=== PATIENT | male | born 1975 | race Caucasian/White ===

== ENCOUNTER 2024-11-11 15:01 | Emergency (ER) | payer OTHER ==
[2024-11-11 16:41] LABS: #Basophils Less than 0.03 10x3/uL (0.0-0.2); %Basophils 0.2 % (0.0-1.0); %Eosinophils 0.4 % (0.0-10.0); %Lymphocytes 5.8 % (21.0-51.0); %Monocytes 8.1 % (0.0-10.0); %Neutrophils 85.2 % (42.0-75.0); Hematocrit 43.8 % (42.0-52.0); Hemoglobin 13.7 g/dL (14.0-18.0); Mean Corpuscular HGB CONC 31.3 g/dL (32.0-36.0); Mean Corpuscular Hemoglobin 27.3 pg (27.0-31.0); Mean Corpuscular Volume 87.3 fL (78.0-98.0); Mean Platelet Volume 9.2 fL (7.4-10.4); Platelet Count 166 10x3/uL (130-400); RBC Distribution Width 14.7 % (11.5-14.5); Red Blood Cell (RBC) Count 5.02 mill/uL (4.70-6.10)
[2024-11-11 17:03] LABS: ALT (SGPT) 117 U/L (Less than 45); AST (SGOT) 95 U/L (11-34); Albumin 3.5 g/dL (3.1-4.5); Alkaline Phosphatase 222 U/L (40-110); Anion Gap 14 mmol/L (10-20); BUN (Urea Nitrogen) 21 mg/dL (8.9-20.6); Bilirubin, Total 0.7 mg/dL (0.3-1.2); Calc. Creatinine Clearance 0 mL/min (70-130); Calcium 8.8 mg/dL (7.8-10.44); Carbon Dioxide 26 mmol/L (22-29); Chloride 106 mmol/L (98-107); Estimated GFR 96; Glucose 115 mg/dL (70-105); Potassium 4.5 mmol/L (3.5-5.1); Protein, Total 6.3 g/dL (6.0-8.3); Sodium 141 mmol/L (136-145)
[2024-11-11 17:07] LABS: Troponin I Less than 0.010 ng/mL (< 0.028)
[2024-11-11 17:09] LABS: Globulin 2.8 g/dL (2.4-3.5)
== END 2024-11-11 18:29 | disposition home or self-care (01) ==
LOC: ERS 15:01
DX: R00.2 Palpitations (principal); R00.0 Tachycardia, unspecified; E10.9 Type 1 diabetes mellitus without complications
CPT/HCPCS: 36415; 71045; 80053; 84443; 84484; 85025; 93005